=== PATIENT | male | born 1980 | race Caucasian/White ===

== ENCOUNTER 2022-08-19 23:58 | Inpatient (IN) ==
[2022-08-20] MEDS ORDERED: LORazepam 2 MG/1 ML VIAL IV STA (00:17)
[2022-08-20] MEDS ORDERED: chlordiazePOXIDE HCl 25 MG CAP PO ONE (00:17)
[2022-08-20] MEDS ORDERED: SODIUM CHLORIDE 0.9% 1000ML 1,000 ML IV SCH ×2 (00:30→04:19)
--- NOTE | 2022-08-20 00:33 | Emergency Department Note ---
History of Present Illness General Chief complaint: Alcohol Withdrawal Stated complaint: ALCOHOL WITHDRAWAL Time Seen by Provider: 08/20/22 00:10 History of Present Illness Maximum Pain Intensity: 6 This 22-year-old male presents the ER for alcohol detox. Patient states he has been drinking heavily for the past week and a half. He last drank a few hours ago. He feels very shaky and tremulous. He has had hallucinations in the past. No known withdrawal seizures. Patient denies chest pain, dyspnea, drug use, abdominal pain, flulike illness. He is requesting admission. Home Medications Medication Instructions Recorded Confirmed Type acetaminophen 500 mg tablet 1,000 mg PO DIRECTED PRN Pain 08/20/22 08/20/22 History (Tylenol Extra Strength) ibuprofen 200 mg tablet 400 mg PO DIRECTED PRN Pain 08/20/22 08/20/22 History Allergies Allergy/AdvReac Type Severity Reaction Status Date / Time No Known Allergies Allergy Verified 08/20/22 01:15 Past Med/Surg History Social History Smoking Status: Current every day smoker Tobacco Type: Cigarettes Preferred Language: Mauritian Feels Safe at Home: Yes Review of Systems A total of 10 systems reviewed and were otherwise negative Physical Exam Vital Signs Vital Signs - 24 hr 08/20/22 00:06 08/20/22 00:47 08/20/22 00:47 Temperature 36.8 C Temperature Source Temporal Artery Scan Pulse Rate 94 H 75 Pulse Rate [Left Finger] 75 Respiratory Rate 22 18 18 Blood Pressure 150/92 H Blood Pressure [Right Arm] 137/84 Blood Pressure Mean 111 Blood Pressure Mean [Right Arm] 101 Pulse Oximetry 99 100 100 Oxygen Delivery Method Room Air Room Air Room Air Sepsis Recent Fever Within 48 Hours No Sepsis New/Unexplained Change in Mental Status No Sepsis Action Taken by Nursing No Action Required 08/20/22 00:17 Temperature Temperature Source Pulse Rate 77 Pulse Rate [Left Finger] Respiratory Rate Blood Pressure Blood Pressure [Right Arm] Blood Pressure Mean Blood Pressure Mean [Right Arm] Pulse Oximetry Oxygen Delivery Method Sepsis Recent Fever Within 48 Hours Sepsis New/Unexplained Change in Mental Status Sepsis Action Taken by Nursing VITALS: Vitals are noted on the nurse's note and reviewed by myself. Vital signs mildly tachycardic. GENERAL: Anxious appearing male with EtOH odor, in no acute distress, nondiaphoretic, well-developed well-nourished. SKIN: The skin was without rashes, erythema, edema, or bruising. There is no tenting of the skin. Capillary reflex less than 2 seconds. HEAD: Normocephalic atraumatic. EARS: External auditory canals clear, tympanic membranes pearly ramsay without erythema or effusion bilaterally. EYES: Pupils equal round and reactive to light and accommodation. Conjunctivae without injection, sclerae without icterus. Extraocular movements intact. NOSE: Patent, turbinates without inflammation or discharge. MOUTH: Mucous membranes moist. Pharynx without erythema or exudate. Uvula midline. Airway patent. Tongue does not deviate. NECK: Supple without nuchal rigidity. No lymphadenopathy. No thyromegaly. Cervical spine is nontender. No JVD. HEART: Regular rate and rhythm LUNGS: Clear to auscultation bilaterally without wheezes, rales or rhonchi. No retractions or accessory muscle use. ABDOMEN: Positive bowel sounds x 4. Normal tympanic percussion. Soft, nontender, without masses or organomegaly. Kaminski sign negative. No guarding or rebound tenderness. No CVA tenderness MUSCULOSKELETAL: No muscle atrophy, erythema, or edema noted. NEURO: Patient was alert and oriented to person place and time. Normal s ensation to light and sharp touch. No focal neurological deficits. Course Administered Medications Discontinued Medications Chlordiazepoxide HCl (Chlordiazepoxide Hcl 25 Mg Cap) 50 mg PO NOW ONE Stop: 08/20/22 00:18 Last Admin: 08/20/22 00:39 Dose: 50 mg Documented By: OSCAR Sodium Chloride (Nss 1000ml) 1,000 mls @ 999 mls/hr IV .Q1H1M LOY Stop: 08/20/22 01:30 Last Admin: 08/20/22 00:39 Dose: 999 mls/hr Documented By: OSCAR Lorazepam (Lorazepam 2 Mg/1 Ml Vial) 1 mg IV NOW STA Stop: 08/20/22 00:18 Last Admin: 08/20/22 00:39 Dose: 1 mg Documented By: OSCAR Medical Decision Making Medical Records Attestation: I reviewed the patient's medical records. Home Medications Current Medication List: was personally reviewed by me Laboratory Data Attestation: I reviewed the patient's lab results. 08/20/22 00:35 08/20/22 00:35 Lab Results 08/20/22 08/20/22 08/20/22 Range/Units 00:35 00:35 00:35 WBC 9.91 (4.8-10.8) K/ul RBC 4.46 L (4.70-6.10) M/uL Hgb 13.6 L (14.0-18.0) g/dl Hct 41.1 L (42.0-52.0) % MCV 92.2 (80.0-100.0) fL MCH 30.5 (25.0-34.0) pg MCHC 33.1 (32.0-36.0) g/dL RDW Std Deviation 45.3 (36.4-46.3) fL RDW Coeff of Rustam 13.3 (11.5-14.5) % Plt Count 358 (130-400) K/uL MPV 10.6 (9.4-12.4) fL Immature Gran % (Auto) 0.3 % Neut % (Auto) 62.4 % Lymph % (Auto) 24.9 % [place] % (Auto) 9.2 % Eos % (Auto) 2.7 % Baso % (Auto) 0.5 % Neut # (Auto) 6.18 (1.40-6.50) K/uL Lymph # (Auto) 2.47 (1.2-3.4) K/uL [place] # (Auto) 0.91 H (0.11-0.59) K/uL Eos # (Auto) 0.27 (0-0.50) K/uL Baso # (Auto) 0.05 (0-0.2) K/uL Immature Gran # (Auto) 0.03 (0.01-0.20) K/uL Sodium 141 (136-145) mmol/L Potassium 3.8 (3.5-5.1) mmol/L Chloride 108 H (98-107) mmol/L Carbon Dioxide 27 (21-32) mmol/L Anion Gap 6 (3-11) BUN 11 (6-23) mg/dl Creatinine 0.64 (0.6-1.4) mg/dl Est Cr Clr Drug Dosing 163.6 ml/min Est GFR ( Amer) 140.0 ml/min Est GFR (Non-Af Amer) 120.8 ml/min BUN/Creatinine Ratio 17.2 (10-20) Glucose 86 (70-99(Fasting)) mg/dl Calcium 9.0 (8.6-10.3) mg/dl Magnesium 1.9 (1.7-2.4) mg/dl Total Bilirubin 0.4 (0.2-1.0) mg/dl AST 19 (13-39) U/L ALT 14 (7-52) U/L Alkaline Phosphatase 90 (34-104) U/L Total Creatine Kinase 129 (30-223) U/L Total Protein 6.7 (6.0-8.3) gm/dl Albumin 4.1 (3.4-5.0) gm/dl Globulin 2.6 (2.5-4.0) gm/dl Albumin/Globulin Ratio 1.6 (0.9-2) Ethyl Alcohol mg/dL < 10.0 (<10.0) mg/dl SARS-CoV-2, RNA, NAAT (NEGATIVE) 08/20/22 Range/Units 00:35 WBC (4.8-10.8) K/ul RBC (4.70-6.10) M/uL Hgb (14.0-18.0) g/dl Hct (42.0-52.0) % MCV (80.0-100.0) fL MCH (25.0-34.0) pg MCHC (32.0-36.0) g/dL RDW Std Deviation (36.4-46.3) fL RDW Coeff of Rustam (11.5-14.5) % Plt Count (130-400) K/uL MPV (9.4-12.4) fL Immature Gran % (Auto) % Neut % (Auto) % Lymph % (Auto) % [place] % (Auto) % Eos % (Auto) % Baso % (Auto) % Neut # (Auto) (1.40-6.50) K/uL Lymph # (Auto) (1.2-3.4) K/uL [place] # (Auto) (0.11-0.59) K/uL Eos # (Auto) (0-0.50) K/uL Baso # (Auto) (0-0.2) K/uL Immature Gran # (Auto) (0.01-0.20) K/uL Sodium (136-145) mmol/L Potassium (3.5-5.1) mmol/L Chloride (98-107) mmol/L Carbon Dioxide (21-32) mmol/L Anion Gap (3-11) BUN (6-23) mg/dl Creatinine (0.6-1.4) mg/dl Est Cr Clr Drug Dosing ml/min Est GFR ( Amer) ml/min Est GFR (Non-Af Amer) ml/min BUN/Creatinine Ratio (10-20) Glucose (70-99(Fasting)) mg/dl Calcium (8.6-10.3) mg/dl Magnesium (1.7-2.4) mg/dl Total Bilirubin (0.2-1.0) mg/dl AST (13-39) U/L ALT (7-52) U/L Alkaline Phosphatase (34-104) U/L Total Creatine Kinase (30-223) U/L Total Protein (6.0-8.3) gm/dl Albumin (3.4-5.0) gm/dl Globulin (2.5-4.0) gm/dl Albumin/Globulin Ratio (0.9-2) Ethyl Alcohol mg/dL (<10.0) mg/dl SARS-CoV-2, RNA, NAAT NEGATIVE (NEGATIVE) Imaging Data Attestation: I personally reviewed and interpreted this imaging study as follows: MDM Narrative Prior records/ancillary studies reviewed. Triage Nursing notes reviewed. Additional history obtained from nursing. The patient's history was concerning for alcohol withdrawal Differential diagnosis: Etiologies such as toxicologic, infection, hypoglycemia, electrolyte abnormalities, cardiac sources, intracerebral event, neurologic, as well as others were entertained. Physical examination: The patient had normal sensorium. No trauma noted. ER treatment provided: IV NSS 1 L bolus Ativan and Librium ordered An order was placed for continuous cardiac monitoring. The monitor shows a rate of 60-1 50 with a sinus rhythm per my interpretation. On reassessment the patient was stable and improving. Diagnostic interpretation by me: ECG: ordered for overdose The electrocardiogram was negative for pathologic change. There was no QRS widening or interval prolongation. Normal sinus, normal intervals, no acute ST-T changes. Impression normal sinus rhythm interval interpreted by myself The labs Independently Interpreted by myself revealed mild anemia, negative alcohol Consultation: A consultation was placed with the hospitalist. The case was discussed and diagnostics were reviewed. The patient was evaluated in the ER for further treatment. This appears to be consistent with alcohol withdrawal symptoms. Patient is requesting admission. Labs and diagnostics are in for interpreted by myself. This case was discussed with the admission team and was reviewed. Patient will be admitted to the medical service. He was started on Ativan and Librium by the evaluation outlined above emergent etiologies such as infection, hypoglycemia, electrolyte abnormalities, cardiac sources, intracerebral event, neurologic,as well as others were deemed relatively unlikely. The pt informed about the findings as listed above. All questions were answered and pleased with the treatment. The chart was completed utilizing [employer] Speech voice recognition software. Grammatical errors, random word insertions, pronoun errors, and incomplete sentences are an occassional consequence of this system due to software limitations, ambient noise, and hardware issues. Any formal questions or concerns about the content, text, or information contained within the body of this dictation should be directly addressed to the physician event sales assistant for clarification. Impression & Plan Alcohol abuse Discharge Plan Visit Data Chief Complaint: Alcohol Withdrawal Stated Complaint: ALCOHOL WITHDRAWAL ED Provider: Anila Pickering ED Midlevel Provider: Miriam Guzman Discharge Problem: Alcohol abuse Patient Disposition: Admitted As Inpatient Condition: Fair Forms Stand Alone Forms: [facility], Suicide Prevention Resources Prescriptions Prescriptions: No Action acetaminophen [Tylenol Extra Strength] 500 mg Tablet 1,000 mg PO DIRECTED PRN (Reason: Pain) ibuprofen 200 mg Tablet 400 mg PO DIRECTED PRN (Reason: Pain) Referrals Referrals: PCP,NO [Physician] -
[2022-08-20 00:58] LABS: Basophils # (auto) 0.05 K/uL (0-0.2); Basophils % (auto) 0.5 %; Eosinophils # (auto) 0.27 K/uL (0-0.50); Eosinophils % (auto) 2.7 %; Hematocrit (blood only) 41.1 % (42.0-52.0); Hemoglobin 13.6 g/dl (14.0-18.0); Immature Granulocytes # (auto) 0.03 K/uL (0.01-0.20); Immature Granulocytes % (auto) 0.3 %; Lymphocytes # (auto) 2.47 K/uL (1.2-3.4); Lymphocytes % (auto) 24.9 %; Mean Corpuscular Hemoglobin 30.5 pg (25.0-34.0); Mean Corpuscular Hgb Conc 33.1 g/dL (32.0-36.0); Mean Corpuscular Volume 92.2 fL (80.0-100.0); Mean Platelet Volume 10.6 fL (9.4-12.4); Monocytes # (auto) 0.91 K/uL (0.11-0.59); Monocytes % (auto) 9.2 %; Neutrophils # (auto) 6.18 K/uL (1.40-6.50); Neutrophils % (auto) 62.4 %; Platelet Count 358 K/uL (130-400); RDW Coefficient of Variation 13.3 % (11.5-14.5); RDW Standard Deviation 45.3 fL (36.4-46.3); Red Blood Count 4.46 M/uL (4.70-6.10); White Blood Count 9.91 K/ul (4.8-10.8)
[2022-08-20 01:14] LABS: Albumin Globulin Ratio 1.6 (0.9-2); Albumin Level 4.1 gm/dl (3.4-5.0); BUN Creatinine Ratio 17.2 (10-20); Bilirubin,Total 0.4 mg/dl (0.2-1.0); Creatinine Clr Calc Pharmacy 163.6 ml/min; Est GFR (Non-African American) 120.8 ml/min; Globulin 2.6 gm/dl (2.5-4.0); Magnesium 1.9 mg/dl (1.7-2.4); Potassium 3.8 mmol/L (3.5-5.1); Total Protein 6.7 gm/dl (6.0-8.3)
[2022-08-20 04:09] LABS: Amphetamines+Metham, Urine Neg (Neg); Barbiturates, Urine Neg (Neg); Benzodiazepine, Urine Neg (Neg); Cocaine, Urine Neg (Neg); MDMA (Ecstacy), Urine Neg (Neg); Methadone, Urine Neg (Neg); Opiate, Urine Neg (Neg); Phencyclidine, Urine Neg (Neg)
--- NOTE | 2022-08-20 04:17 | History and Physical Report ---
DATE OF ADMISSION: 08/20/2022. CHIEF COMPLAINT: Alcohol withdrawal and request for detoxification. HISTORY OF PRESENT ILLNESS: A 42-year-old male with no significant past medical history. He says he is drinking alcohol for last 20 years. He is currently drinking 10-12 shots of whiskey or vodka,and beer every day. He stopped drinking last evening at 6:00 p.m. and wants to get help with detox. Denies any chest pain, denies shortness of breath, no nausea, no vomiting, no abdominal pain. Has some headache. No blurred visions, no earache, no runny nose, no sore throat, no fevers. Normal bowel and bladder movements. Currently, resting comfortably and hemodynamically stable. ALLERGIES: No known drug allergies. PAST MEDICAL HISTORY: None. PAST SURGICAL HISTORY: None. MEDICATIONS: None. FAMILY HISTORY: Denies any family history. SOCIAL HISTORY: Heavily drinks alcohol for the last 20 years. Smokes half pack of cigarettes for last 20 years. Denies any drug use. Denies any smoking or marijuana. REVIEW OF SYSTEMS: As per HPI. Rest of review of systems is negative. PHYSICAL EXAMINATION: GENERAL: The patient is of moderate build, not in acute distress. VITAL SIGNS: Temperature 36.8, pulse 75, respiratory rate 18, blood pressure 137/84, oxygen 100% on room air. HEENT: Pupils equal, round and reactive to light. Oral mucosa moist. NECK: No JVD or neck masses. CARDIOVASCULAR: S1 and S2 heard. Regular rate and rhythm. No murmur, no gallop. RESPIRATORY SYSTEM: Normal AP diameter. No accessory muscle use. No wheezing or crackles. ABDOMEN: Soft, bowel sounds present, nontender, no distention. CENTRAL NERVOUS SYSTEM: Cranial nerves II-XII grossly intact, nonfocal. EXTREMITIES: No edema, no erythema. LABORATORY DATA: WBC 9.9, hemoglobin 13.6, hematocrit 41.1, platelets 358. Sodium 141, potassium 3.8, chloride 108, bicarbonate 27, BUN 11, creatinine 0.6, serum glucose 86, calcium 9, magnesium 1.9, total bilirubin 0.4, AST 19, ALT 14, alkaline phosphatase 90, total creatine kinase 129. Ethyl alcohol less than 10. SARS-CoV-2 rapid test negative. EKG: Normal sinus rhythm at a rate of 71, no acute ST changes seen. ASSESSMENT AND PLAN: This is a 42-year-old male who presents with request for alcohol detoxification. 1. Heavy alcoholism, is currently drinking 10-12 shots of whiskey and vodka daily.Request for detox. Will do alcohol withdrawal protocol with gabapentin and IV Ativan p.r.n. Will give banana bag, will give IV thiamine, IV folic acid, multivitamins daily. Monitor closely for withdrawal. 2. Tobacco abuse. nicotine patch. counselling. 3. Deep venous thrombosis prophylaxis: Sequential compression devices and Lovenox. DISPOSITION: Closely monitor in the [facility]. Social service to help with discharge planning. PT/OT prior to discharge. Job ID: [id number] [employer] [facility]
[2022-08-20] MEDS ORDERED: NITROGLYCERIN SL 0.4 MG/TAB TAB SL PRN (04:19)
[2022-08-20] MEDS ORDERED: GABAPENTIN 600 MG TAB PO ONE (04:19)
[2022-08-20] MEDS ORDERED: LORazepam 2 MG/1 ML VIAL IV PRN ×3 (04:19)
[2022-08-20] MEDS ORDERED: Ativan IV Alcohol Withdrawal--Active Protocol IV PRN (04:19)
[2022-08-20] MEDS ORDERED: THIAMINE HCL 100 MG, FOLIC ACID 1 MG in SODIUM CHLORIDE 0.9% 1000ML 1,000 ML IV SCH (04:19)
[2022-08-20] MEDS ORDERED: CEROVITE ADV FORMULA TAB PO STA (04:19)
[2022-08-20] MEDS ORDERED: GABAPENTIN 1200MG ALCOHOL WITHDRAWAL LOAD PO STA (04:19)
[2022-08-20] MEDS: ACETAMINOPHEN 325 MG TAB PO PRN ×3 (04:44→21:17)
--- NOTE | 2022-08-20 07:20 | Electrocardiogram Report ---
Test Reason : Blood Pressure : / mmHG Vent. Rate : 071 BPM Atrial Rate : 071 BPM P-R Int : 138 ms QRS Dur : 080 ms QT Int : 382 ms P-R-T Axes : 053 014 016 degrees QTc Int : 415 ms Normal sinus rhythm Confirmed by Bryn Baker ([id number]) on 08/20/2022 7:19:56 AM Referred By: REFERRED SELF Confirmed By:Grupo Baker
[2022-08-20 07:28] LABS: Basophils # (auto) 0.04 K/uL (0-0.2); Basophils % (auto) 0.5 %; Eosinophils % (auto) 3.6 %; Hematocrit (blood only) 36.5 % (42.0-52.0); Hemoglobin 12.2 g/dl (14.0-18.0); Immature Granulocytes # (auto) 0.03 K/uL (0.01-0.20); Immature Granulocytes % (auto) 0.4 %; Lymphocytes # (auto) 1.95 K/uL (1.2-3.4); Lymphocytes % (auto) 23.3 %; Mean Corpuscular Hemoglobin 30.7 pg (25.0-34.0); Mean Corpuscular Hgb Conc 33.4 g/dL (32.0-36.0); Mean Corpuscular Volume 91.7 fL (80.0-100.0); Mean Platelet Volume 10.8 fL (9.4-12.4); Monocytes # (auto) 0.85 K/uL (0.11-0.59); Monocytes % (auto) 10.2 %; Platelet Count 315 K/uL (130-400); RDW Coefficient of Variation 13.3 % (11.5-14.5); RDW Standard Deviation 45.1 fL (36.4-46.3); Red Blood Count 3.98 M/uL (4.70-6.10); White Blood Count 8.37 K/ul (4.8-10.8)
[2022-08-20 07:41] LABS: Anion Gap 5 (3-11); BUN Creatinine Ratio 16.3 (10-20); Blood Urea Nitrogen 8 mg/dl (6-23); Carbon Dioxide 24 mmol/L (21-32); Chloride 112 mmol/L (98-107); Creatinine Clr Calc Pharmacy 215.7 ml/min; Est GFR (African American) > 150.0 ml/min; Est GFR (Non-African American) 134.8 ml/min; Glucose 78 mg/dl (70-99(Fasting)); Magnesium 1.7 mg/dl (1.7-2.4); Potassium 3.7 mmol/L (3.5-5.1); Sodium 141 mmol/L (136-145)
[2022-08-20 07:43] LABS: Albumin Level 3.4 gm/dl (3.4-5.0); Bilirubin Direct 0.1 mg/dl (0-0.2); Bilirubin,Total 0.5 mg/dl (0.2-1.0); Total Protein 5.5 gm/dl (6.0-8.3)
[2022-08-20] MEDS: ENOXAPARIN INJ 40 MG/0.4 ML SYR SQ SCH (08:20)
[2022-08-20] MEDS: THIAMINE HCL 100 MG in SYRINGE 9 ML IV SCH (08:21)
[2022-08-20] MEDS: FOLIC ACID 1 MG in SYRINGE 9.8 ML IV SCH (08:21)
[2022-08-20] MEDS: CEROVITE ADV FORMULA TAB PO SCH (08:21)
[2022-08-20] MEDS: NICOTINE 14 MG/24 HR PATCH TD SCH (09:22)
[2022-08-20] MEDS: GABAPENTIN 600 MG TAB PO SCH ×2 (11:46→17:15)
--- NOTE | 2022-08-20 11:47 | Communication Note ---
Date of Service: August 20, 2022 Patient seen and examined Reports feeling anxious and unsteady. Denied any nausea, vomiting, abd pain Counseled patient on alcohol cessation and resources for alcohol rehab Continue AWSS protocol Continue folic acid and thiamine Agree with other plans as detailed in H&P
[2022-08-20] MEDS ORDERED: Nursing to Pharmacy Communication SCH (14:00)
[2022-08-21] MEDS: GABAPENTIN 600 MG TAB PO SCH ×3 (05:15→20:14)
[2022-08-21 06:58] LABS: Hematocrit (blood only) 41.3 % (42.0-52.0); Hemoglobin 14.1 g/dl (14.0-18.0); Mean Corpuscular Hemoglobin 30.7 pg (25.0-34.0); Mean Corpuscular Hgb Conc 34.1 g/dL (32.0-36.0); Platelet Count 355 K/uL (130-400); RDW Coefficient of Variation 13.1 % (11.5-14.5); Red Blood Count 4.59 M/uL (4.70-6.10); White Blood Count 11.26 K/ul (4.8-10.8)
[2022-08-21] MEDS: ACETAMINOPHEN 325 MG TAB PO PRN ×2 (08:22→13:21)
[2022-08-21] MEDS: ENOXAPARIN INJ 40 MG/0.4 ML SYR SQ SCH (08:24)
[2022-08-21] MEDS: THIAMINE HCL 100 MG in SYRINGE 9 ML IV SCH (08:26)
[2022-08-21] MEDS: NICOTINE 14 MG/24 HR PATCH TD SCH (08:26)
[2022-08-21] MEDS: CEROVITE ADV FORMULA TAB PO SCH (08:26)
[2022-08-21] MEDS: FOLIC ACID 1 MG in SYRINGE 9.8 ML IV SCH (08:26)
[2022-08-21 09:41] LABS: Calcium 8.9 mg/dl (8.6-10.3); Magnesium 1.6 mg/dl (1.7-2.4); Potassium 3.8 mmol/L (3.5-5.1)
[2022-08-21 09:46] LABS: BUN Creatinine Ratio 10.3 (10-20); Creatinine Clr Calc Pharmacy 179.7 ml/min; Est GFR (African American) 145.8 ml/min; Est GFR (Non-African American) 125.8 ml/min; Phosphorus 1.9 mg/dl (2.5-4.9)
--- NOTE | 2022-08-21 11:04 | Hospitalist Progress Note ---
Date of Service August 21, 2022 Assessment & Plan (1) Alcohol abuse: Plan: Provided counseling regarding alcohol cessation. consumer marketing manager to provide more resources. Continue alcohol withdrawal protocol. Replete hypomagnesemia and hypophosphatemia. Continue to monitor electrolytes Continue folate and thiamine Counseled regarding smoking cessation Continue nicotine patch DVT ppx - lovenox I spent a total of 40 minutes coordinating, documenting and providing care for this patient excluding time spent in performance of separately billed services Admission and Anticipated Discharge Date Admission Date: August 20, 2022 Subjective Patient seen and examined Reports anxiety, headache Denied hallucinations, palpitation, chest pain, SOB Denied any nausea, vomiting, abd pain Denied dysuria, freq, urgency Physical Exam Constitutional: + well hydrated; no acute distress Eyes: PERRL, conjunctivae normal, anicteric sclerae ENMT: external ear and nose normal, oropharynx normal Respiratory: normal respiratory effort, lungs clear to auscultation Cardiovascular: Rate/Rhythm: regular rate and regular rhythm S1 S2 Gastrointestinal (Abdomen): normal bowel sounds, soft, nontender, no hepatosplenomegaly Musculoskeletal: no cyanosis or clubbing, extremities motor strength 5/5 Neurologic: PERRL, EOMI, accommodation nl, no face palsy, no dysarthria No tremors Results & Data Results & Data Vital Signs (Past 12 Hours) Vital Signs Temp Pulse Pulse Resp BP BP Pulse Ox 08/21/22 10:35 36.4 C L 91 H 16 130/71 93 08/21/22 07:30 37.1 C 89 18 116/67 92 08/21/22 06:06 90 08/21/22 02:57 37.2 C 83 16 148/79 H 93 08/21/22 01:39 72 08/20/22 23:19 36.7 C 82 16 120/73 95 O2 Del Method 08/21/22 10:35 Room Air 08/21/22 07:30 Room Air 08/21/22 06:06 08/21/22 02:57 Room Air 08/21/22 01:39 08/20/22 23:19 Room Air Laboratory Results Abnormal lab results 08/21/22 08/21/22 Range/Units 05:48 05:48 WBC 11.26 H (4.8-10.8) K/ul RBC 4.59 L (4.70-6.10) M/uL Hct 41.3 L (42.0-52.0) % Chloride 109 H (98-107) mmol/L Creatinine 0.58 L (0.6-1.4) mg/dl Phosphorus 1.9 L (2.5-4.9) mg/dl Magnesium 1.6 L (1.7-2.4) mg/dl
[2022-08-21] MEDS: guaiFENesin SUGAR FREE 100 MG/5 ML UDC PO PRN (14:09)
[2022-08-21] MEDS ORDERED: MAGNESIUM SULFATE / D5W 1 GM/100 ML BAG IV ONE (15:06)
[2022-08-21] MEDS: POT PHOSPHATE MONOBASIC W/ SOD TAB PO SCH ×2 (16:36→20:14)
[2022-08-21] MEDS ORDERED: MELATONIN 3 MG TAB PO PRN (17:40)
[2022-08-21] MEDS: oxyCODONE HCL IR 5 MG TAB (IMMEDIATE RELEASE) PO PRN (20:14)
[2022-08-22] MEDS: oxyCODONE HCL IR 5 MG TAB (IMMEDIATE RELEASE) PO PRN ×2 (02:17→08:30)
[2022-08-22 08:29] LABS: Hematocrit (blood only) 42.5 % (42.0-52.0); Hemoglobin 14.7 g/dl (14.0-18.0); Mean Corpuscular Hemoglobin 30.7 pg (25.0-34.0); Mean Corpuscular Hgb Conc 34.6 g/dL (32.0-36.0); Mean Corpuscular Volume 88.7 fL (80.0-100.0); Mean Platelet Volume 10.9 fL (9.4-12.4); Platelet Count 345 K/uL (130-400); RDW Coefficient of Variation 13.3 % (11.5-14.5); RDW Standard Deviation 43.3 fL (36.4-46.3); Red Blood Count 4.79 M/uL (4.70-6.10); White Blood Count 7.33 K/ul (4.8-10.8)
[2022-08-22 08:31] LABS: BUN Creatinine Ratio 10.9 (10-20); Calcium 9.1 mg/dl (8.6-10.3); Creatinine Clr Calc Pharmacy 163.5 ml/min; Est GFR (Non-African American) 120.8 ml/min; Magnesium 1.9 mg/dl (1.7-2.4); Phosphorus 2.8 mg/dl (2.5-4.9); Potassium 4.1 mmol/L (3.5-5.1)
[2022-08-22] MEDS: CEROVITE ADV FORMULA TAB PO SCH (08:31)
[2022-08-22] MEDS: ENOXAPARIN INJ 40 MG/0.4 ML SYR SQ SCH (08:31)
[2022-08-22] MEDS: POT PHOSPHATE MONOBASIC W/ SOD TAB PO SCH (08:31)
[2022-08-22] MEDS: NICOTINE 14 MG/24 HR PATCH TD SCH (08:32)
[2022-08-22] MEDS ORDERED: FOLIC ACID 1 MG TAB PO SCH (09:00)
[2022-08-22] MEDS ORDERED: THIAMINE HCL 100 MG TAB PO SCH (09:00)
[2022-08-22] MEDS: ACETAMINOPHEN 325 MG TAB PO PRN (09:46)
[2022-08-22] MEDS ORDERED: GABAPENTIN 600 MG TAB PO SCH (10:00)
[2022-08-22] MEDS: guaiFENesin SUGAR FREE 100 MG/5 ML UDC PO PRN (10:03)
--- NOTE | 2022-08-22 11:28 | Discharge Summary ---
Date of Service August 22, 2022 Admission HPI Per Admitting Provider 42-year-old male with no significant past medical history. He says he is drinking alcohol for last 20 years. He is currently drinking 10-12 shots of whiskey or vodka,and beer every day. He stopped drinking last evening at 6:00 p.m. and wants to get help with detox. Denies any chest pain, denies shortness of breath, no nausea, no vomiting, no abdominal pain. Has some headache. No blurred visions, no earache, no runny nose, no sore throat, no fevers. Normal bowel and bladder movements. Currently, resting comfortably and hemodynamically stable. Admission Exam Per Admitting Provider GENERAL: The patient is of moderate build, not in acute distress. VITAL SIGNS: Temperature 36.8, pulse 75, respiratory rate 18, blood pressure 137/84, oxygen 100% on room air. HEENT: Pupils equal, round and reactive to light. Oral mucosa moist. NECK: No JVD or neck masses. CARDIOVASCULAR: S1 and S2 heard. Regular rate and rhythm. No murmur, no gallop. RESPIRATORY SYSTEM: Normal AP diameter. No accessory muscle use. No wheezing or crackles. ABDOMEN: Soft, bowel sounds present, nontender, no distention. CENTRAL NERVOUS SYSTEM: Cranial nerves II-XII grossly intact, nonfocal. EXTREMITIES: No edema, no erythema. Principal Diagnosis Alcohol abuse Discharge Exam Constitutional + well hydrated; no acute distress Eyes PERRL, conjunctivae normal, anicteric sclerae ENMT external ear and nose normal, oropharynx normal Respiratory normal respiratory effort, lungs clear to auscultation Cardiovascular Rate/Rhythm: regular rate and regular rhythm S1 S2 Gastrointestinal (Abdomen) normal bowel sounds, soft, nontender, no hepatosplenomegaly Musculoskeletal no cyanosis or clubbing, extremities motor strength 5/5 Neurologic PERRL, EOMI, accommodation nl, no face palsy, no dysarthria Psychiatric A+Ox3, euthymic affect Discharge Data Allergies Allergy/AdvReac Type Severity Reaction Status Date / Time No Known Allergies Allergy Verified 08/20/22 01:15 Consultations 08/20/22 00:30 ED Decision to Admit Stat Hospital Course (1) Alcohol abuse: Provided counseling regarding alcohol cessation. Repleted hypomagnesemia and hypophosphatemia. Electrolytes normal today Continue folate and thiamine Counseled regarding smoking cessation Total Time Total Time Spent Total Time Spent (In Minutes): 35 Total Time Includes: Examination of the Patient, Discharge Planning and Medication Reconciliation Discharge Plan Discharge Items Patient Disposition: Home - Self-Care Reason For Visit: Alcohol detox Discharge Diagnosis: Alcohol abuse Condition on Discharge: Fair Activity: Resume your previous activity Non-emergency contact: Primary Care Provider Call non-emergency contact if: you have any medication questions Follow-up/Referrals: Gilmar Faulkner PA-C [Primary Care Provider] - (Date & Time 08/29/2022 2:20 PM Provider Gilmar Faulkner PA-C Department [facility] ) Diet: Regular Addtl Attending Provider Instructions: Mr Almazan You came to the hospital requesting alcohol detox. You were monitored and managed in the hospital. It is important you quit alcohol use as we discussed. Please ensure follow up with your Primary Doctor. It was a pleasure taking care of you. Pending Studies at Discharge: No Stand-Alone Forms: My [facility], Smoking Cessation Medications and DC Order Prescriptions: New thiamine HCl (vitamin B1) 100 mg Tablet 100 mg PO DAILY Qty: 30 0RF folic acid 1 mg Tablet 1 mg PO DAILY Qty: 30 0RF Continued acetaminophen [Tylenol Extra Strength] 500 mg Tablet 1,000 mg PO DIRECTED PRN (Reason: Pain) ibuprofen 200 mg Tablet 400 mg PO DIRECTED PRN (Reason: Pain) Discharge Orders: Discharge Order (Routine); Ordered 08/22/22 Ordered By: Melody Kirk Admission Data Admit Date/Time: 08/20/22 02:24 Attending Provider: Melody Kirk I. Admit Provider: Rodriguez Richter Primary Care Provider: Gilmar Faulkner Other Providers: Rodriguez Richter Other Interventions: Discharge Summary Assessment (RN) Last Done: 08/22/22 11:50
[2022-08-23] MEDS ORDERED: GABAPENTIN 600 MG TAB PO SCH (22:00)
== END 2022-08-22 12:18 | disposition home or self-care (01) | DRG 897 ==
LOC: ED 23:58 → 2N 08-20 02:24

== ENCOUNTER 2022-12-01 10:13 | Inpatient (IN) ==
[2022-12-01] MEDS ORDERED: THIAMINE HCL 100 MG, FOLIC ACID 1 MG in SODIUM CHLORIDE 0.9% 1000ML 1,000 ML IV STA (11:17)
[2022-12-01] MEDS ORDERED: LORazepam 2 MG/1 ML VIAL IV STA ×2 (11:17→12:55)
[2022-12-01] MEDS ORDERED: CEROVITE ADV FORMULA TAB PO STA (11:17)
--- NOTE | 2022-12-01 11:19 | Emergency Department Note ---
History of Present Illness General Chief complaint: Alcohol Withdrawal Stated complaint: ALCOHOL WITHDRAWAL Time Seen by Provider: 12/01/22 11:06 Source: patient and old records reviewed Mode of arrival: ambulatory Limitations: no limitations History of Present Illness Maximum Pain Intensity: 6 This patient is a 42-year-old male who is an alcoholic comes in with concern for alcohol withdrawal. He went to rehab several times last time was earlier series doing fine until about a week ago he started drinking again he has been drinking about 18-20 drinks a day. His last time he drank yesterday was noon he does h ave a history of withdrawal but has never had seizures related to withdrawal he tells me. He has had no drug use there is no suicidal component he has been shaky and paranoid. He also has a headache. He had no fall or trauma he had no vomiting he has been eating normally. No chest pain. Home Medications Medication Instructions Recorded Confirmed Type acetaminophen 500 mg tablet 1,000 mg PO DIRECTED PRN Pain 08/20/22 11/30/22 History (Tylenol Extra Strength) ibuprofen 200 mg tablet 400 mg PO DIRECTED PRN Pain 08/20/22 11/30/22 History Allergies Allergy/AdvReac Type Severity Reaction Status Date / Time No Known Allergies Allergy Verified 08/20/22 01:15 Past Med/Surg History Medical History Alcohol abuse Surgical History (Updated 12/01/22 @ 14:02 by Jessenia Arroyo PA-C) History of urologic surgery age 5 Family History (Updated 12/01/22 @ 14:05 by Jessenia Arroyo PA-C) Other Diabetes Social History (Updated 12/01/22 @ 14:03 by Jessenia Arroyo PA-C) Smoking Status: Current every day smoker Tobacco Type: Cigarettes Cigarettes Per Day: 1 pack/day; Hx Alcohol Use: Yes Alcohol type: beer and hard liquor Alcohol Intake Frequency: 4 or More x per/Week Alcohol Intake Frequency Comment: 18-20 drinks/ day Hx Substance Use: No Preferred Language: Kenyan Communication Ability: Effective Casting Cleaner Required: No Beliefs That Will Affect Care: None Current Living Situation: Other Current Living Situation Comment: Lives in apartment with friend current occupational status: unemployed Feels Safe at Home: Yes Assistive Devices: None Review of Systems A total of 10 systems reviewed and were otherwise negative Physical Exam Vital Signs Vital Signs - 24 hr 12/01/22 10:29 12/01/22 12:06 12/01/22 12:57 Temperature 36.9 C Temperature Source Temporal Artery Scan Pulse Rate 99 H 70 Respiratory Rate 20 Respiratory Effort / Characteristics Non-Labored Respiratory Depth Normal Blood Pressure 148/85 H Blood Pressure Mean 106 Pulse Oximetry 98 98 Oxygen Delivery Method Room Air Room Air Sepsis Recent Fever Within 48 Hours No Sepsis New/Unexplained Change in Mental Status N/A Sepsis Action Taken by Nursing No Action Required 12/01/22 11:37 12/01/22 11:40 12/01/22 11:50 Temperature Temperature Source Pulse Rate 80 72 69 Respiratory Rate 13 Respiratory Effort / Characteristics Respiratory Depth Blood Pressure Blood Pressure Mean Pulse Oximetry Oxygen Delivery Method Sepsis Recent Fever Within 48 Hours Sepsis New/Unexplained Change in Mental Status Sepsis Action Taken by Nursing 12/01/22 12:00 12/01/22 12:10 12/01/22 12:20 Temperature Temperature Source Pulse Rate 97 H 76 88 Respiratory Rate 17 21 16 Respiratory Effort / Characteristics Respiratory Depth Blood Pressure Blood Pressure Mean Pulse Oximetry Oxygen Delivery Method Sepsis Recent Fever Within 48 Hours Sepsis New/Unexplained Change in Mental Status Sepsis Action Taken by Nursing 12/01/22 12:30 12/01/22 12:40 12/01/22 12:50 Temperature Temperature Source Pulse Rate 87 71 67 Respiratory Rate 15 22 21 Respiratory Effort / Characteristics Respiratory Depth Blood Pressure Blood Pressure Mean Pulse Oximetry Oxygen Delivery Method Sepsis Recent Fever Within 48 Hours Sepsis New/Unexplained Change in Mental Status Sepsis Action Taken by Nursing 12/01/22 13:00 12/01/22 13:10 12/01/22 13:20 Temperature Temperature Source Pulse Rate 71 69 66 Respiratory Rate 24 22 21 Respiratory Effort / Characteristics Respiratory Depth Blood Pressure Blood Pressure Mean Pulse Oximetry Oxygen Delivery Method Sepsis Recent Fever Within 48 Hours Sepsis New/Unexplained Change in Mental Status Sepsis Action Taken by Nursing 12/01/22 13:30 12/01/22 13:40 12/01/22 13:50 Temperature Temperature Source Pulse Rate 79 65 76 Respiratory Rate 19 18 21 Respiratory Effort / Characteristics Respiratory Depth Blood Pressure Blood Pressure Mean Pulse Oximetry Oxygen Delivery Method Sepsis Recent Fever Within 48 Hours Sepsis New/Unexplained Change in Mental Status Sepsis Action Taken by Nursing 12/01/22 14:00 Temperature Temperature Source Pulse Rate 69 Respiratory Rate 20 Respiratory Effort / Characteristics Respiratory Depth Blood Pressure Blood Pressure Mean Pulse Oximetry Oxygen Delivery Method Sepsis Recent Fever Within 48 Hours Sepsis New/Unexplained Change in Mental Status Sepsis Action Taken by Nursing General: Well developed well nourished middle-age male who appears mildly shaky but otherwise in no acute distress, breathing comfortably on room air. Normal speech HEENT: Normal cephalic atraumatic. Pupils are equal round and reactive to light. Extraocular movements are intact. Oropharynx is pink with moist mucous membranes. No swelling of the mouth lips or tongue. Neck: Supple with a midline trachea. No meningeal signs or stiffness, no JVD or bruits. No Stridor. Chest: Clear to auscultation bilaterally. No wheezes or rhonchi. No increased work of breathing. Heart: Regular rate and rhythm without murmurs or gallops. Abdomen: Soft nontender, nondistended without rebound guarding or rigidity. Extremities: No cyanosis clubbing or edema. No calf tenderness or assymetry Spine/Back. Non tender to palpation. No CVA tenderness Skin: Good turgor without rashes. Neurologic exam: Cranial nerves two through 12 are intact. Motor and sensation are intact and symmetrical throughout. Mild tremor Course Administered Medications Discontinued Medications Thiamine HCl 100 mg/ Folic (Acid 1 mg/ Sodium Chloride) 1,001.2 mls @ 500 mls/hr IV .Q2H1M STA; Protocol Stop: 12/01/22 13:17 Last Admin: 12/01/22 12:21 Dose: 500 mls/hr Documented By: AKANKSHA Lorazepam (Lorazepam 2 Mg/1 Ml Vial) 1 mg IV NOW STA Stop: 12/01/22 11:18 Last Admin: 12/01/22 12:21 Dose: 1 mg Documented By: AKANKSHA Lorazepam (Lorazepam 2 Mg/1 Ml Vial) 1 mg IV NOW STA Stop: 12/01/22 12:56 Last Admin: 12/01/22 13:28 Dose: 1 mg Documented By: AKANKSHA Multivitamins/Minerals (Cerovite Adv Formula Tab) 1 tab PO ONE Stop: 12/01/22 11:18 Last Admin: 12/01/22 12:21 Dose: 1 tab Documented By: AKANKSHA Medical Decision Making Differential Diagnosis Alcohol withdrawal, electrolyte or metabolic abnormality, anxiety, dehydration, infection, toxicologic, arrhythmia Medical Records Attestation: I reviewed the patient's medical records. Home Medications Current Medication List: was personally reviewed by me Laboratory Data 12/01/22 11:15 12/01/22 11:15 Lab Results 12/01/22 12/01/22 12/01/22 Range/Units 11:15 11:15 11:15 WBC 8.23 (4.8-10.8) K/ul RBC 4.84 (4.70-6.10) M/uL Hgb 14.9 (14.0-18.0) g/dl Hct 43.4 (42.0-52.0) % MCV 89.7 (80.0-100.0) fL MCH 30.8 (25.0-34.0) pg MCHC 34.3 (32.0-36.0) g/dL RDW Std Deviation 44.3 (36.4-46.3) fL RDW Coeff of Rustam 13.5 (11.5-14.5) % Plt Count 327 (130-400) K/uL MPV 11.1 (9.4-12.4) fL Immature Gran % (Auto) 1.3 % Neut % (Auto) 67.0 % Lymph % (Auto) 24.2 % [place] % (Auto) 6.0 % Eos % (Auto) 1.1 % Baso % (Auto) 0.4 % Neut # (Auto) 5.52 (1.40-6.50) K/uL Lymph # (Auto) 1.99 (1.2-3.4) K/uL [place] # (Auto) 0.49 (0.11-0.59) K/uL Eos # (Auto) 0.09 (0-0.50) K/uL Baso # (Auto) 0.03 (0-0.2) K/uL Immature Gran # (Auto) 0.11 (0.01-0.20) K/uL Sodium 141 (136-145) mmol/L Potassium 3.6 (3.5-5.1) mmol/L Chloride 108 H (98-107) mmol/L Carbon Dioxide 26 (21-32) mmol/L Anion Gap 7 (3-11) BUN 12 (6-23) mg/dl Creatinine 0.74 (0.6-1.4) mg/dl Est Cr Clr Drug Dosing 141.7 ml/min Est GFR ( Amer) 131.9 ml/min Est GFR (Non-Af Amer) 113.8 ml/min BUN/Creatinine Ratio 16.2 (10-20) Glucose 90 (70-99(Fasting)) mg/dl Calcium 9.3 (8.6-10.3) mg/dl Total Bilirubin 0.5 (0.2-1.0) mg/dl AST 22 (13-39) U/L ALT 18 (7-52) U/L Alkaline Phosphatase 75 (34-104) U/L Total Protein 7.7 (6.0-8.3) gm/dl Albumin 4.6 (3.4-5.0) gm/dl Globulin 3.1 (2.5-4.0) gm/dl Albumin/Globulin Ratio 1.5 (0.9-2) Lipase 55 (11-82) U/L Urine Color Urine Appearance (Clear) Urine pH (4.5-7.5) Ur Specific [place] (1.000-1.030) Urine Protein (Negative) Urine Glucose (UA) (Negative) Urine Ketones (Negative) Urine Blood (Negative) Urine Nitrite (Negative) Urine Bilirubin (Negative) Urine Urobilinogen (Negative) Ur Leukocyte Esterase (Negative) Urine WBC (Auto) (0-5) /hpf Urine RBC (Auto) (0-4) /hpf U Hyaline Cast (Auto) (0-5) /lpf U Epithel Cells (Auto) (0-5) /lpf Urine Bacteria (Auto) (Negative) Ethyl Alcohol mg/dL < 10.0 (<10.0) mg/dl SARS-CoV-2, RNA, NAAT (NEGATIVE) 12/01/22 12/01/22 Range/Units 11:15 13:00 WBC (4.8-10.8) K/ul RBC (4.70-6.10) M/uL Hgb (14.0-18.0) g/dl Hct (42.0-52.0) % MCV (80.0-100.0) fL MCH (25.0-34.0) pg MCHC (32.0-36.0) g/dL RDW Std Deviation (36.4-46.3) fL RDW Coeff of Rustam (11.5-14.5) % Plt Count (130-400) K/uL MPV (9.4-12.4) fL Immature Gran % (Auto) % Neut % (Auto) % Lymph % (Auto) % [place] % (Auto) % Eos % (Auto) % Baso % (Auto) % Neut # (Auto) (1.40-6.50) K/uL Lymph # (Auto) (1.2-3.4) K/uL [place] # (Auto) (0.11-0.59) K/uL Eos # (Auto) (0-0.50) K/uL Baso # (Auto) (0-0.2) K/uL Immature Gran # (Auto) (0.01-0.20) K/uL Sodium (136-145) mmol/L Potassium (3.5-5.1) mmol/L Chloride (98-107) mmol/L Carbon Dioxide (21-32) mmol/L Anion Gap (3-11) BUN (6-23) mg/dl Creatinine (0.6-1.4) mg/dl Est Cr Clr Drug Dosing ml/min Est GFR ( Amer) ml/min Est GFR (Non-Af Amer) ml/min BUN/Creatinine Ratio (10-20) Glucose (70-99(Fasting)) mg/dl Calcium (8.6-10.3) mg/dl Total Bilirubin (0.2-1.0) mg/dl AST (13-39) U/L ALT (7-52) U/L Alkaline Phosphatase (34-104) U/L Total Protein (6.0-8.3) gm/dl Albumin (3.4-5.0) gm/dl Globulin (2.5-4.0) gm/dl Albumin/Globulin Ratio (0.9-2) Lipase (11-82) U/L Urine Color Yellow Urine Appearance Clear (Clear) Urine pH 7.0 (4.5-7.5) Ur Specific [place] 1.014 (1.000-1.030) Urine Protein Negative (Negative) Urine Glucose (UA) Negative (Negative) Urine Ketones Negative (Negative) Urine Blood Trace H (Negative) Urine Nitrite Negative (Negative) Urine Bilirubin Negative (Negative) Urine Urobilinogen Negative (Negative) Ur Leukocyte Esterase Negative (Negative) Urine WBC (Auto) 1-5 (0-5) /hpf Urine RBC (Auto) 0-4 (0-4) /hpf U Hyaline Cast (Auto) 0 (0-5) /lpf U Epithel Cells (Auto) 10-20 H (0-5) /lpf Urine Bacteria (Auto) Negative (Negative) Ethyl Alcohol mg/dL (<10.0) mg/dl SARS-CoV-2, RNA, NAAT NEGATIVE (NEGATIVE) ECG Data Attestation: I personally reviewed and interpreted this ECG as follows: Indication: + toxicologic Rate (beats per minute): 75 Rhythm: + normal sinus ECG Intervals/blocks: + Normal QRS, + Normal QT and + Normal NV ECG [place]: + Normal ECG ST segments: + Normal ST segments ECG Findings: no PACs or no PVCs Comparison ECG Date: from (11/30/22) Change: no significant change MDM Narrative This patient comes in as described above. He was placed in room B10. He is here for treatment evaluation of alcohol withdrawal he last drank yesterday around noon he appears mildly shaky otherwise vitals appear to be fairly stable. He was given Ativan 1 mg IV access was tablet was placed on a lunchroom monitor. He was given an IV banana bag. Multiple blood testing was obtained as well as EKG he was reassessed frequently. He has no significant acrylate or metabolic abnormality does not think she has pancreatitis. His liver functions are within normal limits. alcohol level was negative which is consistent with not drinking. His vital signs are stable he does feel a little shaky still although feels better today given additional Ativan 1 mg IV. I have consulted the medical team for medical admission for alcohol withdrawal. I discussed the case with the hospitalist. Continuous lunchroom monitor: Orders placed in EMR for continuous cardiac monitoring: Upon my evaluation patient was noted to be in normal sinus rhythm with a rate of 90. Impression & Plan Alcohol withdrawal, Alcohol abuse, Shakiness, Lab test negative for COVID-19 virus Discharge Plan Visit Data Chief Complaint: Alcohol Withdrawal Stated Complaint: ALCOHOL WITHDRAWAL ED Provider: Raymundo Mora Discharge Problem: Alcohol withdrawal, Alcohol abuse, Shakiness, Lab test negative for COVID-19 virus Forms Stand Alone Forms: My [facility], Suicide Prevention Resources Prescriptions Prescriptions: No Action acetaminophen [Tylenol Extra Strength] 500 mg Tablet 1,000 mg PO DIRECTED PRN (Reason: Pain) ibuprofen 200 mg Tablet 400 mg PO DIRECTED PRN (Reason: Pain) Referrals Referrals: Faulkner,Gilmar L., PA-C [Primary Care Provider] -
[2022-12-01 11:53] LABS: Basophils # (auto) 0.03 K/uL (0-0.2); Basophils % (auto) 0.4 %; Eosinophils # (auto) 0.09 K/uL (0-0.50); Eosinophils % (auto) 1.1 %; Hematocrit (blood only) 43.4 % (42.0-52.0); Hemoglobin 14.9 g/dl (14.0-18.0); Immature Granulocytes # (auto) 0.11 K/uL (0.01-0.20); Immature Granulocytes % (auto) 1.3 %; Lymphocytes # (auto) 1.99 K/uL (1.2-3.4); Lymphocytes % (auto) 24.2 %; Mean Corpuscular Hemoglobin 30.8 pg (25.0-34.0); Mean Corpuscular Hgb Conc 34.3 g/dL (32.0-36.0); Mean Corpuscular Volume 89.7 fL (80.0-100.0); Mean Platelet Volume 11.1 fL (9.4-12.4); Monocytes # (auto) 0.49 K/uL (0.11-0.59); Neutrophils # (auto) 5.52 K/uL (1.40-6.50); Platelet Count 327 K/uL (130-400); RDW Coefficient of Variation 13.5 % (11.5-14.5); RDW Standard Deviation 44.3 fL (36.4-46.3); Red Blood Count 4.84 M/uL (4.70-6.10); White Blood Count 8.23 K/ul (4.8-10.8)
[2022-12-01 12:06] LABS: Albumin Globulin Ratio 1.5 (0.9-2); Albumin Level 4.6 gm/dl (3.4-5.0); BUN Creatinine Ratio 16.2 (10-20); Bilirubin,Total 0.5 mg/dl (0.2-1.0); Calcium 9.3 mg/dl (8.6-10.3); Creatinine Clr Calc Pharmacy 141.7 ml/min; Est GFR (African American) 131.9 ml/min; Est GFR (Non-African American) 113.8 ml/min; Globulin 3.1 gm/dl (2.5-4.0); Potassium 3.6 mmol/L (3.5-5.1); Total Protein 7.7 gm/dl (6.0-8.3)
[2022-12-01 13:19] LABS: Appearance Urine Clear (Clear); Bacteria Urine Automated Negative (Negative); Bilirubin Urine Negative (Negative); Blood Urine Trace (Negative); Cast Urine Automated 0 /lpf (0-5); Color Urine Yellow; Glucose Urine UA Negative (Negative); Ketones Urine Negative (Negative); Leukocyte Esterase Urine Negative (Negative); Nitrite Urine Negative (Negative); Protein Urine Negative (Negative); RBC Urine Automated 0-4 /hpf (0-4); Specific Gravity Urine 1.014 (1.000-1.030); Urobilinogen Urine Negative (Negative)
--- NOTE | 2022-12-01 13:33 | History & Physical Report ---
Date of Service December 01, 2022 Assessment & Plan (1) Alcohol withdrawal: Plan: This is a 42 y/o male with a history of alcohol abuse with multiple prior admissions for EtOH withdrawal, most recently a month ago, who started drinking heavily again one week ago but stopped drinking over the last 24 hours and feels like he is again developing withdrawal symptoms, specifically VILLAFUERTE, tremors, anxiety, racing thoughts, so he came to the ED for evaluation and possible ad mission. - Admit to PCU for close monitoring, maintenance IVF - Alcohol withdrawal protocol with gabapentin and lorazepam - Daily thiamine and folic acid - Pt states it is unlikely that he would be agreeable to rehab upon discharge but he is willing to consider it - Nicotine patch (smokes 1PPD) - smoking cessation counseling (2) Alcohol abuse: Plan The patient was seen and evaluated with collaborating physician, Dr. Roblero. Plan of care discussed and as outlined above. Code Status: Full code DVT Prophylaxis: Abner Arroyo PA-C History of Present Illness Chief Complaint: alcohol withdrawal Primary Care Provider: Gilmar Faulkner PA-C This is a 42 y/o male with a history of alcohol abuse with multiple prior admissions for withdrawal, hx anxiety, and sciatic who is presenting to the ED for alcohol withdrawal. Pt was most recently admitted at [facility] about a month ago for same concerns. He declined rehab at discharge and preferred to manage outpatient. He has gone through rehab previously. He reports doing well until about a week ago when he had some stressful things happen so he started to drink alcohol again. He reports drinking 18-20 drinks a day, both beer and liquor, up until yesterday around noon. He reports having blackouts over the last week with multiple periods of time of which he has no memory. This is new for him and is why he decided to stop drinking again yesterday. He was seen in the ED last night because of concerns of withdrawal, which he has had previously - work-up for VILLAFUERTE was negative and pt declined interest in rehab so he was discharged home. This morning he felt like the withdrawal symptoms were worse so he came back to the ED. Currently he is feeling anxious and shaky, tremor in hands. He feels like his thoughts are racing, and he notes an ongoing headache. He denies prior seizure related to withdrawal. He denies chest pain, syncope, palpitations, or shortness of breath. He has had some dizziness over the last week but attributes to the heat and not staying well-hydrated as he does not drink much other than the EtOH when he is drinking. He is eating 1-2 meals/day. He smokes 1PPD but denies use of other substances. Records from prior hospitalizations reviewed in Epic. Allergies Allergy/AdvReac Type Severity Reaction Status Date / Time No Known Allergies Allergy Verified 08/20/22 01:15 Home Medications Medication Instructions Recorded Confirmed Type acetaminophen 500 mg tablet 1,000 mg PO DIRECTED PRN Pain 08/20/22 12/01/22 History (Tylenol Extra Strength) ibuprofen 200 mg tablet 400 mg PO DIRECTED PRN Pain 08/20/22 12/01/22 History Past Med/Surg History Medical History Alcohol abuse Surgical History History of urologic surgery age 5 Family History Other Diabetes Social History Smoking Status: Heavy tobacco smoker Tobacco Type: Cigarettes Cigarettes Per Day: 1 pack/day; Hx Alcohol Use: Yes Alcohol type: beer and hard liquor Alcohol Intake Frequency: 4 or More x per/Week Alcohol Intake Frequency Comment: 18-20 drinks/day Hx Substance Use: No Preferred Language: Iranian Communication Ability: Effective Industrial Controls Technician Required: No Beliefs That Will Affect Care: None Current Living Situation: Other Current Living Situation Comment: lives with friends current occupational status: unemployed Feels Safe at Home: Yes Safety Concerns: Feels Safe At This Time Assistive Devices: None Review of Systems Review of Systems: All systems reviewed & are unremarkable except as noted in HPI & below Constitutional: no fever and no sweats Eyes: no diplopia and no worsening vision Ear, Nose, Mouth, Throat: no nasal congestion, no nasal discharge and no sore throat Respiratory: no cough, no dyspnea and no wheezing Cardiovascular: no chest pain, no palpitations, no syncope and no edema Gastrointestinal: no abdominal pain, no nausea, no vomiting and no blood in stools Genitourinary: no dysuria or no hematuria Musculoskeletal: + myalgia Integumentary: no rash and no yellowing of the skin Neurologic: + tremor(s) (feels "shaky") and + headache(s) Psychiatric: + anxiety Physical Exam Constitutional: no acute distress Eyes: + anicteric sclerae ENMT: external ear and nose normal, oropharynx normal Neck: trachea midline Respiratory: no respiratory distress and no labored breathing Auscultation: lungs clear to auscultation bilaterally; no rales, no rhonchi and no wheezes Cardiovascular: Rate/Rhythm: regular rate and regular rhythm Vessels: posterior tibial pulses present and radial pulses present Extremities: no pedal edema Gastrointestinal (Abdomen): Inspection/Auscultation: normal bowel sounds; abdomen not distended Percussion/Palpation: abdomen soft; abdomen nontender Musculoskeletal: Head/Neck/Chest: normocephalic, head atraumatic and neck supple Skin: no jaundice Neurologic: moves all extremities; no focal motor deficits and not confused Psychiatric: A+Ox3, euthymic affect Results & Data Results & Data Vital Signs (Past 12 Hours) Vital Signs Temp Pulse Resp BP Pulse Ox O2 Del Method 12/01/22 12:57 98 Room Air 12/01/22 12:06 70 12/01/22 10:29 36.9 C 99 H 20 148/85 H 98 Room Air Laboratory Results Laboratory Results - last 24 hr 12/01/22 12/01/22 12/01/22 11:15 11:15 11:15 WBC 8.23 RBC 4.84 Hgb 14.9 Hct 43.4 MCV 89.7 MCH 30.8 MCHC 34.3 RDW Std Deviation 44.3 RDW Coeff of Rustam 13.5 Plt Count 327 MPV 11.1 Immature Gran % (Auto) 1.3 Neut % (Auto) 67.0 Lymph % (Auto) 24.2 [place] % (Auto) 6.0 Eos % (Auto) 1.1 Baso % (Auto) 0.4 Neut # (Auto) 5.52 Lymph # (Auto) 1.99 [place] # (Auto) 0.49 Eos # (Auto) 0.09 Baso # (Auto) 0.03 Immature Gran # (Auto) 0.11 Sodium 141 Potassium 3.6 Chloride 108 H Carbon Dioxide 26 Anion Gap 7 BUN 12 Creatinine 0.74 Est Cr Clr Drug Dosing 141.7 Est GFR ( Amer) 131.9 Est GFR (Non-Af Amer) 113.8 BUN/Creatinine Ratio 16.2 Glucose 90 Calcium 9.3 Magnesium Pending Total Bilirubin 0.5 AST 22 ALT 18 Alkaline Phosphatase 75 Total Protein 7.7 Albumin 4.6 Globulin 3.1 Albumin/Globulin Ratio 1.5 Lipase 55 Urine Color Urine Appearance Urine pH Ur Specific [place] Urine Protein Urine Glucose (UA) Urine Ketones Urine Blood Urine Nitrite Urine Bilirubin Urine Urobilinogen Ur Leukocyte Esterase Urine WBC (Auto) Urine RBC (Auto) U Hyaline Cast (Auto) U Epithel Cells (Auto) Urine Bacteria (Auto) Ethyl Alcohol mg/dL Pending SARS-CoV-2, RNA, NAAT 12/01/22 12/01/22 11:15 13:00 WBC RBC Hgb Hct MCV MCH MCHC RDW Std Deviation RDW Coeff of Rustam Plt Count MPV Immature Gran % (Auto) Neut % (Auto) Lymph % (Auto) [place] % (Auto) Eos % (Auto) Baso % (Auto) Neut # (Auto) Lymph # (Auto) [place] # (Auto) Eos # (Auto) Baso # (Auto) Immature Gran # (Auto) Sodium Potassium Chloride Carbon Dioxide Anion Gap BUN Creatinine Est Cr Clr Drug Dosing Est GFR ( Amer) Est GFR (Non-Af Amer) BUN/Creatinine Ratio Glucose Calcium Magnesium Total Bilirubin AST ALT Alkaline Phosphatase Total Protein Albumin Globulin Albumin/Globulin Ratio Lipase Urine Color Yellow Urine Appearance Clear Urine pH 7.0 Ur Specific [place] 1.014 Urine Protein Negative Urine Glucose (UA) Negative Urine Ketones Negative Urine Blood Trace H Urine Nitrite Negative Urine Bilirubin Negative Urine Urobilinogen Negative Ur Leukocyte Esterase Negative Urine WBC (Auto) 1-5 Urine RBC (Auto) 0-4 U Hyaline Cast (Auto) 0 U Epithel Cells (Auto) 10-20 H Urine Bacteria (Auto) Negative Ethyl Alcohol mg/dL SARS-CoV-2, RNA, NAAT NEGATIVE Medications Administered Discontinued Medications Thiamine HCl 100 mg/ Folic (Acid 1 mg/ Sodium Chloride) 1,001.2 mls @ 500 mls/hr IV .Q2H1M STA; Protocol Stop: 12/01/22 13:17 Last Admin: 12/01/22 12:21 Dose: 500 mls/hr Documented By: AKANKSHA Lorazepam (Lorazepam 2 Mg/1 Ml Vial) 1 mg IV NOW STA Stop: 12/01/22 11:18 Last Admin: 12/01/22 12:21 Dose: 1 mg Documented By: AKANKSHA Lorazepam (Lorazepam 2 Mg/1 Ml Vial) 1 mg IV NOW STA Stop: 12/01/22 12:56 Last Admin: 12/01/22 13:28 Dose: 1 mg Documented By: AKANKSHA Multivitamins/Minerals (Cerovite Adv Formula Tab) 1 tab PO ONE STA Stop: 12/01/22 11:18 Last Admin: 12/01/22 12:21 Dose: 1 tab Documented By: AKANKSHA Code Status & VTE Plan VTE Prophylaxis Plan VTE Prophylaxis will be ordered: Yes Supervising Physician Co-Signing Physician Notes I have seen and examined the patient and have discussed the case with the provider above. I agree with the assessment and plan as stated. 42 yo alcoholic man here for concerns for withdrawal. He is expressing a desire to quit alcohol. He reports some withdrawal symptoms today including anxiety, tremulousness and paranoia with slight diaphoresis. We discussed the plan here in the hospital including gabapentin and Ativan and he is in agreement with this. Denies any other symptoms at this time. Physical reveals BP 148/85, HR 85, AF, oxygenating 98 on RA. He is not visibly tremulous or anxious and is mentating clearly with good insight into his issues. He is in NAD and is WNWD. Cardiac exam reveals S1/2 heard without murmurs, regular rate and rhythm and no peripheral edema. Lungs are CTA bilaterally, no gross focal neuromuscular deficits. Abdomen is soft, NTND. Skin is warm and dry. Reviewed labwork with CBC, Chem panel, ETOH level and UA unremarkable. EKG: SR 75. Imaging results reviewed. Last reported drink was 24 hours ago. Cont with plan as noted above for alcohol withdrawal symptoms in an alcoholic man with high risk of severe withdrawal. Cont daily thiamine and folic acid supplementation. He was counseled on the importance of rehab after he is in a safe place post- withdrawal. Smoking cessation advised, nicoderm patch provided. DO Osbaldo
--- NOTE | 2022-12-01 13:55 | Electrocardiogram Report ---
Test Reason : Blood Pressure : / mmHG Vent. Rate : 075 BPM Atrial Rate : 075 BPM P-R Int : 132 ms QRS Dur : 092 ms QT Int : 382 ms P-R-T Axes : 051 012 026 degrees QTc Int : 426 ms Normal sinus rhythm Normal ECG When compared with ECG of 30-NOV-2022 19:05, No significant change was found Confirmed by Vito Sapp ([id number]) on 12/01/2022 1:55:21 PM Referred By: REFERRED SELF Confirmed By:Vito Sapp
[2022-12-01 14:14] LABS: Magnesium 1.8 mg/dl (1.7-2.4)
[2022-12-01] MEDS ORDERED: LORazepam 2 MG/1 ML VIAL IV PRN (15:49)
[2022-12-01] MEDS ORDERED: GABAPENTIN 1200MG ALCOHOL WITHDRAWAL LOAD PO STA (15:49)
[2022-12-01] MEDS ORDERED: GABAPENTIN 600 MG TAB PO ONE (15:49)
[2022-12-01] MEDS: NICOTINE 21 MG/24 HR TDSY TD SCH (16:17)
[2022-12-01] MEDS: D5NSS + 20MEQ KCL 20 MEQ/1,000 ML BAG IV SCH (16:30)
[2022-12-01] MEDS: ACETAMINOPHEN 325 MG TAB PO PRN (18:16)
[2022-12-01] MEDS: GABAPENTIN 600 MG TAB PO SCH (19:54)
[2022-12-02] MEDS: ACETAMINOPHEN 325 MG TAB PO PRN ×3 (00:28→22:42)
[2022-12-02] MEDS: GABAPENTIN 600 MG TAB PO SCH ×3 (02:14→18:44)
[2022-12-02] MEDS: D5NSS + 20MEQ KCL 20 MEQ/1,000 ML BAG IV SCH (04:07)
[2022-12-02] MEDS ORDERED: KETOROLAC TROMETHAMINE 15 MG/ML VIAL IV ONE (04:23)
[2022-12-02 08:29] LABS: Basophils # (auto) 0.03 K/uL (0-0.2); Basophils % (auto) 0.4 %; Eosinophils # (auto) 0.15 K/uL (0-0.50); Eosinophils % (auto) 2.2 %; Hematocrit (blood only) 43.5 % (42.0-52.0); Immature Granulocytes # (auto) 0.03 K/uL (0.01-0.20); Immature Granulocytes % (auto) 0.4 %; Lymphocytes # (auto) 1.96 K/uL (1.2-3.4); Lymphocytes % (auto) 28.3 %; Mean Corpuscular Hemoglobin 31.2 pg (25.0-34.0); Mean Corpuscular Hgb Conc 34.5 g/dL (32.0-36.0); Mean Corpuscular Volume 90.4 fL (80.0-100.0); Mean Platelet Volume 11.2 fL (9.4-12.4); Monocytes # (auto) 0.43 K/uL (0.11-0.59); Monocytes % (auto) 6.2 %; Neutrophils # (auto) 4.33 K/uL (1.40-6.50); Neutrophils % (auto) 62.5 %; Platelet Count 309 K/uL (130-400); RDW Coefficient of Variation 13.4 % (11.5-14.5); RDW Standard Deviation 44.1 fL (36.4-46.3); Red Blood Count 4.81 M/uL (4.70-6.10); White Blood Count 6.93 K/ul (4.8-10.8)
[2022-12-02 08:54] LABS: Albumin Level 4.2 gm/dl (3.4-5.0); BUN Creatinine Ratio 11.1 (10-20); Bilirubin Direct 0.1 mg/dl (0-0.2); Bilirubin,Total 0.6 mg/dl (0.2-1.0); Calcium 9.4 mg/dl (8.6-10.3); Creatinine Clr Calc Pharmacy 167.8 ml/min; Est GFR (African American) 140.9 ml/min; Est GFR (Non-African American) 121.5 ml/min; Magnesium 1.9 mg/dl (1.7-2.4); Potassium 4.3 mmol/L (3.5-5.1); Total Protein 7.1 gm/dl (6.0-8.3)
[2022-12-02] MEDS: FOLIC ACID 1 MG TAB PO SCH (09:12)
[2022-12-02] MEDS: ENOXAPARIN INJ 40 MG/0.4 ML SYR SQ SCH (09:13)
[2022-12-02] MEDS ORDERED: Ativan PO Alcohol Withdrawal--Active Protocol PO PRN (09:23)
[2022-12-02] MEDS ORDERED: LORazepam 1 MG TAB PO PRN ×3 (09:23)
[2022-12-02] MEDS ORDERED: ONDANSETRON INJ 2 MG/ML 2 ML VIAL IV PRN (09:30)
[2022-12-02] MEDS ORDERED: MAGNESIUM SULFATE / D5W 1 GM/100 ML BAG IV ONE (09:31)
[2022-12-02] MEDS: THIAMINE HCL 100 MG TAB PO SCH (10:09)
[2022-12-02] MEDS: SODIUM CHLORIDE 0.9% 1000ML 1,000 ML IV SCH ×2 (10:10→22:44)
[2022-12-02] MEDS: BUTALBITAL/ACETAMIN/CAFFEINE TAB PO PRN ×2 (11:06→16:02)
[2022-12-02] MEDS: NICOTINE 21 MG/24 HR TDSY TD SCH (11:06)
--- NOTE | 2022-12-02 13:01 | Hospitalist Progress Note ---
Date of Service December 02, 2022 Assessment & Plan (1) Alcohol withdrawal: Plan: Minimal withdrawal symptoms currently Will continue to monitor Ativan PO and gabapentin taper ordered continue folic acid, thiamine change IVF to NSS at 100cc/hr, continue for 1 more day Patient not interested in rehab. he was previously doing well and remained sober for 3 years when he went to AA Meetings. He is planning to resume his AA Meetings after discharge Will ask for psychiatry consult to address underlying anxiety/depression (2) Alcohol abuse: (3) Current smoker: Plan: -counseled cessation -continue nicotine patch 21mg daily (4) Headache: Plan: -Most consistent with caffeine withdrawal -will order Fioricet Plan DVT ppx- SQ heparin Disposition- Anticipate possible discharge in the next 48 hours Admission and Anticipated Discharge Date Admission Date: December 01, 2022 Subjective Having a headache. Feels anxious Remains bradycardic on telemetry Patient drinks about 20 alcoholic drinks a day. Last drink was 2 days ago Patient smokes about 1 pack of cigarettes a day Patient drinks 5-6 cups of coffee a day Prior to resuming drinking 1 week ago, he was sober for 3 years. He doesn't know why he stopped attending AA Meetings and started drinking again. He does have underlying anxiety and feels maybe this is contributing to his alcohol use Review of Systems Review of Systems: as above Physical Exam Physical Exam: Appears stated age, no acute distress, pleasant and comfortable Respiratory: Breathing comfortably on room air, no wheezing/rhonchi/rales Cardiovascular: Regular rate and rhythm, no murmurs/rubs/gallops Gastrointestinal (Abdomen): soft, non tender Musculoskeletal: no edema Neurologic: awake, alert, spontaneously moving extremities Psychiatric: speech linear, good insight Results & Data Results & Data Vital Signs (Past 12 Hours) Vital Signs Temp Pulse Pulse Resp BP Pulse Ox O2 Del Method 12/02/22 11:23 36.6 C 66 18 137/85 98 Room Air 12/02/22 08:00 54 L 12/02/22 07:18 36.5 C 72 17 122/80 98 Room Air 12/02/22 04:14 36.4 C L 69 20 130/88 98 Room Air 12/02/22 03:00 36.5 C 61 18 128/88 98 Room Air
[2022-12-02] MEDS ORDERED: KETOROLAC TROMETHAMINE 15 MG/ML VIAL IV PRN (13:18)
--- NOTE | 2022-12-02 18:31 | Psychiatric Consultation ---
Date of Consultation December 02, 2022 Impression / Recommendations Impression 42 y/o man with severe alcohol dependence and history of complicated withdrawal. He is dismissive of the recommendation of inpatient CARA treatment once withdrawal is complete. He is very interested in pursuing a trial of oral naltrexone. He does not appear to have significant comorbid psychiatric symptoms that would warrant treatment. (1) Alcohol use disorder, severe, dependence: (2) Alcohol withdrawal syndrome without complication: Plan Recommend oral naltrexone 50 mg PO daily. This should ideally be started prior to discharge, and there is no particular reason not to start it now. I continue to believe he would benefit from inpatient CARA treatment ("rehab"), but he is not interested in this. Psych History Identifying Data LUCY WANG is a 42-year-old M with a history of alcohol use disorder and of complicated withdrawal, admitted on 12/01/2022 for alcohol withdrawal. Consult is by the hospitalist service for "anxiety, depression, alcohol abuse". Chief Complaint "I'm doing better now". History of Present Illness As part of a thorough review of the available medical records, I have read and confirmed the following note by the ED physician: "This patient is a 42-year-old male who is an alcoholic comes in with concern for alcohol withdrawal. He went to rehab several times last time was earlier series doing fine until about a week ago he started drinking again he has been drinking about 18-20 drinks a day. His last time he drank yesterday was noon he does have a history of withdrawal but has never had seizures related to withdrawal he tells me. He has had no drug use there is no suicidal component he has been shaky and paranoid. " and the following note by the hospitalist: "This is a 42 y/o male with a history of alcohol abuse with multiple prior admissions for withdrawal, hx anxiety, and sciatic who is presenting to the ED for alcohol withdrawal. Pt was most recently admitted at [facility] about a month ago for same concerns. He declined rehab at discharge and preferred to manage outpatient. He has gone through rehab previously. He reports doing well until about a week ago when he had some stressful things happen so he started to drink alcohol again. He reports drinking 18-20 drinks a day, both beer and liquor, up until yesterday around noon. He reports having blackouts over the last week with multiple periods of time of which he has no memory. This is new for him and is why he decided to stop drinking again yesterday. He was seen in the ED last night because of concerns of withdrawal, which he has had previously - work-up for [facility]AF[facility]ERTE was negative and pt declined interest in rehab so he was discharged home. This morning he felt like the withdrawal symptoms were worse so he came back to the ED. Currently he is feeling anxious and shaky, tremor in hands. He feels like his thoughts are racing, and he notes an ongoing headache. He denies prior seizure related to withdrawal. He denies chest pain, syncope, palpitations, or shortness of breath. He has had some dizziness over the last week but attributes to the heat and not staying well-hydrated as he does not drink much other than the EtOH when he is drinking. He is eating 1-2 meals/day. He smokes 1PPD but denies use of other substances." Review of the medical record reveals no previous or outside psychiatric records. He had a similar previous admission here in August of this year and has had "several" other admissions for medical management of alcohol withdrawal ("detox"). He denies a history of psychiatric diagnoses. Review of pertinent labs reveals they are essentially noncontributory. Urine toxicology screen was not performed. BAL was 59 mg/dL. Pt reports a 20+ year drinking history. He drinks 20 drinks/day consisting of "airline bottles" of liquor or 12-ounce cans of normal-gravity beer. He has had withdrawal seizures with abrupt cessation of alcohol use in non-medical settings, but never while being treated for withdrawal. He has had few medical consequences of alcohol use, but recently "got scared" when he started having memory blackouts which led to his stopping drinking and precipitating this admission. His longest period of sobriety was 3 years (which ended about a year and a half ago), during which he used AA. He strongly prefers to rely on AA and is strongly opposed to my recommendation of inpatient substance use disorders (CARA) treatment following the current admission. He does acknowledge that he has resolved to quit drinking and participated in AA numerous times in the past only to experience rapid relapse. He used disulfiram ("Antabuse") "many years ago" and had his second-longest period of sobriety until he "decided to stop it so I could drink". I spoke with him at length about 3 FDA-approved drugs for medication-assisted treatment (MAT) of alcohol use disorders: disulfiram, acamprosate, and naltrexone (in oral or long-acting injectable forms). I told him that each of these could cut his relapse risk by 50% (and that this obviously means that MAT is not likely to be effective on its own. Since oral naltrexone is the simplest to take, (once-daily single-tablet dosing vs. 2 tablets TID for acamprosate), the most detailed discussion was about that option. I reviewed potential adverse effects (primarily GI). He indicated he would be very interested in pursuing this. Pt denies mood or anxiety symptoms currently or by history. He says he did report feeling anxious about the recent-onset memory blackouts. Past Psychiatric History Previous Psych History: denies Previous Psych Admissions: denies Do You Have Access To A Gun?: No History of Previous Suicide Attempt: No Allergies Allergy/AdvReac Type Severity Reaction Status Date / Time No Known Allergies Allergy Verified 08/20/22 01:15 Home Medications Medication Instructions Recorded Confirmed Type acetaminophen 500 mg tablet 1,000 mg PO DIRECTED PRN Pain 08/20/22 12/01/22 History (Tylenol Extra Strength) ibuprofen 200 mg tablet 400 mg PO DIRECTED PRN Pain 08/20/22 12/01/22 History Patient History Medical History Alcohol abuse Surgical History History of urologic surgery age 5 Family History Other Diabetes Social History Smoking Status: Heavy tobacco smoker Tobacco Type: Cigarettes Cigarettes Per Day: 1 pack/day; Hx Alcohol Use: Yes Alcohol type: beer and hard liquor Alcohol Intake Frequency: 4 or More x per/Week Alcohol Intake Frequency Comment: 18-20 drinks/day Hx Substance Use: No Preferred Language: Guatemalan Communication Ability: Effective 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 Required: No Beliefs That Will Affect Care: None Current Living Situation: Other Current Living Situation Comment: lives with friends current occupational status: unemployed Feels Safe at Home: Yes Safety Concerns: Feels Safe At This Time Assistive Devices: None Physical Exam Psychiatric: Orientation: alert, oriented to person, oriented to place, oriented to time and cooperative Apperance: appropriately dressed (hospital- supplied garments) and appropriately groomed Eye Contact: good eye contact Motor Behavior: no abnormal motor movements Speech: normal rate/rhythm/volume of speech Affect: + constricted affect Mood: + dysphoric mood Thought Process: linear/logical thought process Thought Content: reality based without delusions Suicidal Thoughts: denies suicidal thoughts, denies suicidal plan and denies suicidal intent Homicidal Thoughts: denies homicidal thoughts Hallucinations: no auditory hallucinations, no visual hallucinations and no tactile hallucinations Cognition: recent memory grossly intact, remote memory grossly intact, attention grossly intact and language grossly intact Estimated Intelligence: + above average estimated intelligence Insight: + limited insight Judgment: + limited judgement Vital Signs (Past 24 Hours): Last Vital Signs Temp 36.5 C 12/02/22 16:27 Pulse 75 12/02/22 17:53 Resp 18 12/02/22 16:27 BP 126/81 12/02/22 16:27 Pulse Ox 99 12/02/22 16:27 O2 Del Method Room Air 12/02/22 17:53 Review of Systems Psychiatric: + substance abuse; no depression, no hopelessness, no suicidal ideation and no hallucinations Results & Data (PSY) Medications Administered Acetaminophen (Acetaminophen 325 Mg Tab) 650 mg PO Q4H PRN PRN Reason: Pain or Fever Stop: 12/31/22 15:48 Last Admin: 12/02/22 07:23 Dose: 650 mg Documented By: Admin: 12/02/22 00:28 Dose: 650 mg Documented By: Admin: 12/01/22 18:16 Dose: 650 mg Documented By: Acetaminophen/Butalbital/Caffeine (Butalbital/Acetamin/Caffeine Tab) 1 tab PO Q4H PRN PRN Reason: Headache Stop: 01/01/23 10:44 Last Admin: 12/02/22 16:02 Dose: 1 tab Documented By: [facility] Admin: 12/02/22 11:06 Dose: 1 tab Documented By: Enoxaparin Sodium (Enoxaparin Inj 40 Mg/0.4 Ml Syr) 40 [facility] [place] Stop: 01/01/23 08:59 Last Admin: 12/02/22 09:13 Dose: 40 mg Documented By: Folic Acid (Folic Acid 1 Mg Tab) 1 mg PO QAM LOY Stop: 01/01/23 08:59 Last Admin: 12/02/22 09:12 Dose: 1 mg Documented By: DADA Gabapentin (Gabapentin 600 Mg Tab) 600 mg PO Q8H [facility] Stop: 12/03/22 01:46 Last Admin: 12/02/22 09:12 Dose: 600 mg Documented By: DADA Sodium Chloride (Nss 1000ml) 1,000 mls @ 80 mls/hr IV .[id number] [facility] Stop: 01/01/23 09:29 Last Admin: 12/02/22 10:10 Dose: 80 mls/hr Documented By: DADA Ketorolac Tromethamine (Ketorolac Tromethamine 15 Mg/Ml Vial) 15 mg IV NOW PRN PRN Reason: headache Stop: 12/07/22 13:17 Last Admin: 12/02/22 13:34 Dose: 15 mg Documented By: DADA Miscellaneous (Remove Nicoderm Patch) 1 each N/A DAILY@[id number] [facility] Stop: 01/01/23 08:58 Last Admin: 12/02/22 10:10 Dose: 1 each Documented By: DADA Nicotine (Nicotine 21 Mg/24 Hr Tdsy) 21 mg TD Q24H [facility] Stop: 12/31/22 15:59 Last Admin: 12/02/22 11:06 Dose: 21 mg Documented By: Admin: 12/01/22 16:17 Dose: 21 mg Documented By: AKANKSHA Thiamine HCl (Thiamine Hcl 100 Mg Tab) 100 mg PO QAM [facility] Stop: 01/01/23 08:59 Last Admin: 12/02/22 10:09 Dose: 100 mg Documented By: Coding Level of Care Code 33118 IN/OBS CONSULT LVL 3,45M Diagnoses Alcohol use disorder, severe, dependence F10.20 Alcohol withdrawal syndrome without complication F10.930 Time Spent (min) 52
[2022-12-03] MEDS: GABAPENTIN 600 MG TAB PO SCH ×2 (03:25→15:36)
[2022-12-03 06:54] LABS: BUN Creatinine Ratio 9.8 (10-20); Creatinine Clr Calc Pharmacy 172.7 ml/min; Est GFR (African American) 142.8 ml/min; Est GFR (Non-African American) 123.2 ml/min; Magnesium 1.7 mg/dl (1.7-2.4); Phosphorus 2.8 mg/dl (2.5-4.9); Potassium 4.1 mmol/L (3.5-5.1)
[2022-12-03] MEDS: ENOXAPARIN INJ 40 MG/0.4 ML SYR SQ SCH (10:14)
[2022-12-03] MEDS: FOLIC ACID 1 MG TAB PO SCH (10:14)
[2022-12-03] MEDS: THIAMINE HCL 100 MG TAB PO SCH (10:14)
[2022-12-03] MEDS: NICOTINE 21 MG/24 HR TDSY TD SCH (10:15)
[2022-12-03 11:02] LABS: Amphetamines+Metham, Urine Neg (Neg); Barbiturates, Urine Pos (Neg); Benzodiazepine, Urine Neg (Neg); Cocaine, Urine Neg (Neg); MDMA (Ecstacy), Urine Neg (Neg); Methadone, Urine Neg (Neg); Opiate, Urine Neg (Neg); Phencyclidine, Urine Neg (Neg)
--- NOTE | 2022-12-03 13:19 | Hospitalist Progress Note ---
Date of Service December 03, 2022 Assessment & Plan (1) Alcohol withdrawal: Plan: Minimal withdrawal symptoms on Gabapentin taper Has not required PRN ativan Continue thiamine, folic acid supplement Discontinue IVF Agreeable to starting naltrexone 50mg daily. Patient will be given 30 day supply at discharge, refills per PCP. Patient will need periodic monitoring of LFTs. UDS here negative for opioid (2) Alcohol abuse: (3) Current smoker: Plan: -counseled ongoing cessation -continue nicotine patch 21mg daily (4) Headache: Plan: -Most consistent with caffeine withdrawal -will order Fioricet Plan DVT ppx- SQ heparin Disposition- Anticipate possible discharge tomorrow. Admission and Anticipated Discharge Date Admission Date: December 01, 2022 Subjective Feels better today Less anxious, still has a mild headache No events on telemetry (remains sinus bradycardia) Has not required any PRN ativan Agreeable to starting naltrexone. Review of Systems Review of Systems: as above Physical Exam Physical Exam: Appears well. Sitting in bed, eating lunch Respiratory: Breathing comfortably on room air, no wheezing/rhonchi Cardiovascular: Bradycardic but regular, no murmurs/rubs/gallops Gastrointestinal (Abdomen): soft, non tender, non distended Musculoskeletal: No edema Neurologic: awake, alert, spontaneously moving extremities Psychiatric: Calm, maintains eye contact, speech is linear, non pressured Results & Data Results & Data Vital Signs (Past 12 Hours) Vital Signs Temp Pulse Resp BP Pulse Ox O2 Del Method 12/03/22 11:40 36.8 C 64 18 144/85 H 96 Room Air 12/03/22 07:41 37.1 C 68 18 127/87 97 Room Air 12/03/22 03:20 36.4 C L 47 L 12 133/86 99 Room Air
[2022-12-03] MEDS: NALTREXONE HCL 50 MG TAB PO SCH (13:41)
[2022-12-03] MEDS: BUTALBITAL/ACETAMIN/CAFFEINE TAB PO PRN (18:15)
[2022-12-04] MEDS: GABAPENTIN 600 MG TAB PO SCH (01:58)
[2022-12-04 08:00] LABS: Creatinine Clr Calc Pharmacy 137.5 ml/min; Est GFR (African American) 134.9 ml/min; Est GFR (Non-African American) 116.4 ml/min
[2022-12-04] MEDS: NALTREXONE HCL 50 MG TAB PO SCH (08:37)
[2022-12-04] MEDS: ENOXAPARIN INJ 40 MG/0.4 ML SYR SQ SCH (08:37)
[2022-12-04] MEDS: THIAMINE HCL 100 MG TAB PO SCH (08:37)
[2022-12-04] MEDS: FOLIC ACID 1 MG TAB PO SCH (08:38)
--- NOTE | 2022-12-04 11:44 | Discharge Summary ---
Date of Service December 04, 2022 Admission HPI Per Admitting Provider This is a 42 y/o male with a history of alcohol abuse with multiple prior admissions for withdrawal, hx anxiety, and sciatic who is presenting to the ED for alcohol withdrawal. Pt was most recently admitted at [facility] about a month ago for same concerns. He declined rehab at discharge and preferred to manage outpatient. He has gone through rehab previously. He reports doing well until about a week ago when he had some stressful things happen so he started to drink alcohol again. He reports drinking 18-20 drinks a day, both beer and liquor, up until yesterday around noon. He reports having blackouts over the last week with multiple periods of time of which he has no memory. This is new for him and is why he decided to stop drinking again yesterday. He was seen in the ED last night because of concerns of withdrawal, which he has had previously - work-up for [facility] was negative and pt declined interest in rehab so he was discharged home. This morning he felt like the withdrawal symptoms were worse so he came back to the ED. Currently he is feeling anxious and shaky, tremor in hands. He feels like his thoughts are racing, and he notes an ongoing headache. He denies prior seizure related to withdrawal. He denies chest pain, syncope, palpitations, or shortness of breath. He has had some dizziness over the last week but attributes to the heat and not staying well-hydrated as he does not drink much other than the EtOH when he is drinking. He is eating 1-2 meals/day. He smokes 1PPD but denies use of other substances. Records from prior hospitalizations reviewed in [facility]. Principal Diagnosis Alcohol abuse Current smoker Caffeine withdrawal headache Alcohol withdrawal Discharge Exam Patient seen on day of discharge in his room. He feels much better. Has not required any as needed ativan since admission. Headache has resolved Has received naltrexone for two doses and he is tolerating it well He was counseled on smoking cessation, remaining sober and attending his AA meetings and also cutting back on his caffein use On exam, he is well appearing, no diaphoresis, breathing comfortably on room air, heart is regular rate and rhythm Discharge Data Allergies Allergy/AdvReac Type Severity Reaction Status Date / Time No Known Allergies Allergy Verified 08/20/22 01:15 Consultations 12/01/22 13:17 ED Decision to Admit Stat 12/02/22 10:45 Consult Psychiatry Routine Hospital Course (1) Alcohol withdrawal: Minimal withdrawal symptoms on Gabapentin taper Has not required PRN ativan Continue thiamine, folic acid supplement Agreeable to starting naltrexone 50mg daily. Patient will be given 30 day supply at discharge, refills per PCP. Patient will need LFT check in 2-3 weeks after discharge then every 6 months UDS here negative for opioid. Patient was counseled that he should not be on narcotics while also being on naltrexone He declines rehab. He wants to return back to his AA meetings. An alcohol booklet was provided to him (2) Alcohol abuse: (3) Current smoker: Ongoing smoking cessation Tolerated nicotine patch here and a 30 day prescription was provided to him at discharge (4) Headache: -Most consistent with caffeine withdrawal -He drinks 5-6 cups of coffee a day. He was counseled on reducing his caffeine intake down to 2 cups max Total Time Total Time Spent Total Time Spent (In Minutes): 35 Discharge Plan Discharge Items Patient Disposition: Home - Self-Care Reason For Visit: ALCOHOL WITHDRAWAL Discharge Diagnosis: Alcohol abuse Alcohol withdrawal Caffeine withdrawal headache Activity: Resume your previous activity Non-emergency contact: Primary Care Provider Call non-emergency contact if: you have any medication questions Follow-up/Referrals: Gilmar Faulkner PA-C [Primary Care Provider] - Diet: Regular Addtl Attending Provider Instructions: It is important for your health to live a better life style You should attend AA meetings again to maintain your sobriety If you change your mind about rehab, please speak with your primary care doctor You were started on Naltrexone 50mg daily, prescription for 30 day supply. Please speak with your PCP about refills. You need liver enzymes to be checked in a couple weeks and then every 6 months You should NOT take any narcotics while on Naltrexone Pending Studies at Discharge: No Stand-Alone Forms: [facility], Smoking Cessation Medications and DC Order Prescriptions: New naltrexone 50 mg Tablet 50 mg PO DAILY 30 Days Qty: 30 0RF thiamine HCl (vitamin B1) 100 mg Tablet 100 mg PO QAM Qty: 30 0RF nicotine [Nicoderm CQ] 21 mg/24 hr Patch 24 Hour 21 mg transdermal Q24H 30 Days Qty: 30 0RF folic acid 1 mg Tablet 1 mg PO QAM 30 Days Qty: 30 0RF Continued ibuprofen 200 mg Tablet 400 mg PO DIRECTED PRN (Reason: Pain) Discontinued acetaminophen [Tylenol Extra Strength] 500 mg Tablet 1,000 mg PO DIRECTED PRN (Reason: Pain) Discharge Orders: Discharge Order (Routine); Ordered 12/04/22 Ordered By: Irene Jones Admission Data Admit Date/Time: 12/01/22 13:31 Attending Provider: Irene Jones Admit Provider: Taylor Roblero Primary Care Provider: Gilmar Faulkner Other Providers: Taylor Roblero ; Esme Dumont ; Trisha Griffith ; Guillermo Villa
[2022-12-05] MEDS ORDERED: GABAPENTIN 600 MG TAB PO SCH (01:45)
[2022-12-05 16:47] LABS: Amobarbital, Urine Conf NEGATIVE ng/mL (<100); Butalbital, Urine 824 ng/mL (<100); Pentobarbital, Urine Conf NEGATIVE ng/mL (<100); Phenobarbital, Urine NEGATIVE ng/mL (<100); Secobarbital, Urine Conf NEGATIVE ng/mL (<100)
== END 2022-12-04 13:05 | disposition home or self-care (01) | DRG 897 ==
LOC: ED 10:13 → SUATTDRO 13:31 → EDINP 13:31 → 2S 17:37